=== PATIENT | female | born 1960 | race Caucasian/White ===

== ENCOUNTER 2020-10-13 13:28 | Emergency (ER) | payer OTHER ==
[~2020-10-13] VITALS: Ht 160 cm; Wt 111.1 kg
[~2020-10-13 13:28] MED LIST: ABILIFY5 MG PO; ACETAMINOPHEN; ATIVAN1 MG PO; DARVOCET N 1001 TAB PO; FIORICET 325 MG1 TAB PO; Ferrex 150150 MG; Flovent 220 M220 MCG INH; HYDROCHLOROTH12.5 MG PO; HYDROCODONE; KCL; KEFLEX500 MG PO; LISINOPRIL20 MG PO; LOPRESSOR25 MG PO; LORAZEPAM2 MG PO; LOVASTATIN20 MG PO; LOVASTATIN40 MG; MOTRIN800 MG PO; PAROXETINE HCL20 MG; PAXIL40 MG PO; TRIMOX,POLYMOX250 MG PO; TYLENOL WITH CO1 TAB PO; ULTRAM50 MG PO; VICODIN 5/500 505 MG PO; VOLTAREN50 M1 PO; ZITHROMAX Z PA250 MG PO; ZYRTEC10 MG PO
[2020-10-13 13:38] VITALS: BP 146/82
[2020-10-13] MEDS ORDERED: CLEOCIN HCL150 MG PO (16:33)
== END 2020-10-13 16:47 | disposition home or self-care (01) ==
LOC: ED 13:28
DX: K04.7 Periapical abscess without sinus (principal); Z88.8 Allergy status to other drugs, medicaments and biological substances; Z88.5 Allergy status to narcotic agent; Z79.899 Other long term (current) drug therapy; Z90.49 Acquired absence of other specified parts of digestive tract; Z90.711 Acquired absence of uterus with remaining cervical stump